=== PATIENT | male | born 1940 | race Caucasian/White ===

== ENCOUNTER 2018-06-21 15:42 | Observation (INO) | payer OTHER ==
[2018-06-21] MEDS ORDERED: LORazepam 2 MG/ML INJ IVP ONE (16:02)
[2018-06-21] MEDS ORDERED: NS 1,000 ML IV ONE (16:02)
[2018-06-21] MEDS ORDERED: ONDANSETRON 4 MG/2 ML VIAL IVP ONE (16:02)
--- NOTE | 2018-06-21 16:05 | EDPHY ---
H & P Stated Complaint: from [place] esophageal stricture Time Seen by Provider: 06/21/18 15:55 HPI/ROS: CHIEF COMPLAINT: Esophageal foreign body HISTORY OF PRESENT ILLNESS: Patient is a 77-year-old man with a history of esophageal stricture post two dilations. The most recent was 3 years ago. Last night he was eating steak for dinner and got a piece stuck. It is been present ever since. He presented to the emergency department at [place] at 4 :00 a.m. and received a dose of glucagon. Initially he felt like his symptoms resolved. However this seemed to return a few hours later so he went back to the emergency department in [place]. There he received another dose of glucagon. He has been unable to tolerate liquids. He still has a foreign body sensation. They called and spoke with Dr. Red Rodas from [facility] who requested that the patient be transferred to [facility] in for EGD. Severity: Moderate Modifying factors: None REVIEW OF SYSTEMS: Constitutional: denies: chills, fever, recent illness, recent injury EENTM: denies: blurred vision, double vision, nose congestion Respiratory: denies: cough, shortness of breath Cardiac: denies: chest pain, irregular heart rate, lightheadedness, palpitations Gastrointestinal/Abdominal: See HPI denies: abdominal pain, diarrhea, blood streaked stools Genitourinary: denies: dysuria, frequency, hematuria, pain Musculoskeletal: denies: joint pain, muscle pain Skin: denies: lesions, rash, jaundice, bruising Neurological: denies: headache, numbness, paresthesia, tingling, dizziness, weakness Hematologic/Lymphatic: denies: blood clots, easy bleeding, easy bruising Immunologic/allergic: denies: HIV/AIDS, transplant 10 systems reviewed and negative except as noted EXAM: GENERAL: Uncomfortable-appearing, well-nourished and in no acute distress. HEAD: Atraumatic, normocephalic. EYES: Pupils equal round and reactive to light, extraocular movements intact, sclera anicteric, conjunctiva are normal. ENT: TMs normal, nares patent, oropharynx clear without exudates. Moist mucous membranes. NECK: Normal range of motion, supple without lymphadenopathy or JVD. LUNGS: Breath sounds clear to auscultation bilaterally and equal. No wheezes rales or rhonchi. HEART: Regular rate and rhythm without murmurs, rubs or gallops. ABDOMEN: Soft, nontender, normoactive bowel sounds. No guarding, no rebound. No masses appreciated. BACK: No CVA tenderness, no spinal tenderness, step-offs or deformities EXTREMITIES: Normal range of motion, no pitting or edema. No clubbing or cyanosis. NEUROLOGICAL: Cranial nerves II through XII grossly intact. Normal speech, normal gait. 5/5 strength, normal movement in all extremities, normal sensation , normal reflexes PSYCH: Normal mood, normal affect. SKIN: Warm, dry, normal turgor, no visible rashes or lesions. Source: Patient Exam Limitations: No limitations - Personal History Current Tetanus/Diphtheria Vaccine: No Current Tetanus Diphtheria and Acellular Pertussis (TDAP): No Tetanus Vaccine Date: WITHIN 10 YRS - Medical/Surgical History Hx Asthma: No Hx Chronic Respiratory Disease: No Hx Diabetes: No Hx Cardiac Disease: No Hx Renal Disease: No Hx Cirrhosis: No Hx Alcoholism: No Hx HIV/AIDS: No Hx Splenectomy or Spleen Trauma: No Other PMH: Esophageal stricture, HTN, HIGH CHOLESTROL, gout, R knee replacement , Parkinsons - Family History Significant Family History: No pertinent family hx - Social History Smoking Status: Former smoker Alcohol Use: Sober Drug Use: None Constitutional: Initial Vital Signs Temperature (C) 36.9 C 06/21/18 15:50 Heart Rate 119 H 06/21/18 15:50 Respiratory Rate 24 H 06/21/18 15:50 Blood Pressure 126/106 H 06/21/18 15:50 O2 Sat (%) 93 06/21/18 15:50 O2 Delivery Mode Room Air Allergies/Adverse Reactions: No Known Allergies Allergy (Unverified 06/21/18 15:49) Home Medications: Medication Instructions Recorded Allopurinal 06/04/13 Simvastatin 06/04/13 Sleeping Pill 06/04/13 Lisinopril 07/19/14 Sinemet 10/100 MG (*) 06/21/18 Medical Decision Making - Diagnostics EKG Interpretation: An EKG obtained and was read and documented in trace view. Please see trace view for full reading and report. Sinus tachycardia, no acute ischemic changes T-wave inversion lead 3 similar to previous ED Course/Re-evaluation: 4:10 p.m. I discussed the case with Dr. Tobin who states that he will come to evaluated perform EGD. Differential Diagnosis: Partial list of the Differential diagnosis considered include but were not limited to; esophageal foreign body, erosion, stricture, varices and although unlikely based on the history and physical exam, I also considered peptic ulcer , cancer, aneurysm, dissection, pneumothorax, acute coronary disease. I discussed these differential diagnoses and the plan with the patient as well as the usual and expected course. The patient understands that the diagnosis is provisional and that in medicine we are not always correct and that further workup is often warranted. Usual and customary warnings were given. All of the patient's questions were answered. The patient was instructed to return to the emergency department should the symptoms at all worsen or return, otherwise to followup with the physician as we discussed. - Data Points Medications Given: Discontinued Medications Sodium Chloride (Ns) 1,000 mls @ 0 mls/hr IV EDNOW ONE; Wide Open PRN Reason: Protocol Stop: 06/21/18 16:03 Last Admin: 06/21/18 16:43 Dose: 1,000 mls Lorazepam (Ativan Injection) 1 mg IVP EDNOW ONE Stop: 06/21/18 16:03 Last Admin: 06/21/18 16:36 Dose: 1 mg Ondansetron HCl (Zofran) 4 mg IVP EDNOW ONE Stop: 06/21/18 16:03 Last Admin: 06/21/18 16:36 Dose: 4 mg Departure - Departure Disposition: To OP Cath/Surgery Clinical Impression: Esophageal foreign body Qualifiers: Encounter type: initial encounter Qualified Code(s): T18.108A - Unspecified foreign body in esophagus causing other injury, initial encounter Condition: Fair
[2018-06-21] MEDS ORDERED: LR 1,000 ML IV ONE (16:47)
--- NOTE | 2018-06-21 16:51 | CPEKG ---
Test Reason : OPEN Blood Pressure : / mmHG Vent. Rate : 105 BPM Atrial Rate : 105 BPM P-R Int : 154 ms QRS Dur : 085 ms QT Int : 345 ms P-R-T Axes : 034 012 -08 degrees QTc Int : 457 ms Sinus tachycardia Inferior infarct, age indeterminate Confirmed by Main Meza ([id number]) on 06/21/2018 4:50:56 PM Referred By: Confirmed By:Main Meza
--- NOTE | 2018-06-21 16:55 | PDGENHP ---
History & Physical Chief Complaint: Dysphagia History of Present Illness: Food impaction in the esophagus. Inability to eat or swallow. Not tolerating his own secretions. Previous history of similar with prior EGD and dilation of esophageal stenosis. Pertinent Past, Social, Family History: Parkinsons disease. GERD. Esophageal stricture. HTN Relevant Physical Exam: Uncomfortable. Spitting into bucket. Mild distress. Neck supple. CTA B/L. RRR without m/r/g. GI soft. NABS. NT/ND. Cardiorespiratory Assessment: ASA IIIE. EGD with foreign body removal
--- NOTE | 2018-06-21 16:57 | PDANEPAE ---
ANE History of Present Illness here for EGD ANE Past Medical History - Cardiovascular History Hx Hypertension: Yes Hx Arrhythmias: No Hx Chest Pain: No Hx Coronary Artery / Peripheral Vascular Disease: No Hx CHF / Valvular Disease: No Hx Palpitations: No - Pulmonary History Hx COPD: No Hx Asthma/Reactive Airway Disease: No Hx Recent Upper Respiratory Infection: No Hx Oxygen in Use at Home: No - Endocrine History Hx Diabetes: No Hypothyroid: No Hyperthyroid: No - Renal History Hx Renal Disorders: No - Liver History Hx Hepatic Disorders: No - Neurological & Psychiatric Hx Hx Neurological and Psychiatric Disorders: No ANE Review of Systems Review of systems is: negative Review of Systems: - Exercise capacity Exercise capacity: >=4 METS ANE Patient History - Allergies Allergies/Adverse Reactions: No Known Allergies Allergy (Unverified 06/21/18 15:49) - Home Medications Home medications: home medication list seen and reviewed Home Medications: Allopurinal 06/04/13 [Last Taken Unknown] Simvastatin 06/04/13 [Last Taken Unknown] Sleeping Pill 06/04/13 [Last Taken Unknown] Lisinopril 07/19/14 [Last Taken Unknown] Sinemet 10/100 MG (*) 06/21/18 [Last Taken Unknown] - NPO status NPO Status: no food or drink >8 hours - Smoking Hx Smoking Status: Former smoker - Alcohol Use Alcohol Use: Sober ANE Labs/Vital Signs - Vital Signs Vital Signs: reviewed preoperatively; see RN documention for details Blood Pressure: 154/107 Heart Rate: 105 Respiratory Rate: 15 O2 Sat (%): 94 Height: 175.26 cm Weight: 90.718 kg ANE Physical Exam - Airway Neck exam: FROM Mallampati Score: Class 1 Mouth exam: normal dental/mouth exam - Pulmonary Pulmonary: no respiratory distress - Cardiovascular Cardiovascular: regular rate and rhythym - ASA Status ASA Status: II ANE Anesthesia Plan Anesthesia Plan: general endotracheal anesthesia
[2018-06-21] MEDS ORDERED: PROPOFOL/EMULSION 500 MG/50 ML BOTTLE IV ONE (17:03)
[2018-06-21] MEDS ORDERED: ONDANSETRON 4 MG/2 ML VIAL IVP PRN ×2 (17:24→20:54)
[2018-06-21] MEDS ORDERED: NALOXONE HCL 0.4 MG/ML INJ IVP PRN (17:24)
[2018-06-21] MEDS ORDERED: ALBUTEROL 3 ML DEYVIAL IH PRN (17:24)
[2018-06-21] MEDS ORDERED: NS 500 ML IV PRN (17:24)
[2018-06-21] MEDS ORDERED: fentaNYL 100 MCG/2 ML INJ IVP PRN (17:24)
--- NOTE | 2018-06-21 17:56 | POSTANESTH ---
Post Anesthetic Evaluation Cardiovascular Status: Normal, Stable Respiratory Status: Normal, Stable Level of Consciousness/Mental Status: Mildly Sleepy, Arousable Pain Control: Adequate, Prn Tx Ordered Nausea/Vomiting Control: Adequate, Prn Tx Ordered
[2018-06-21] MEDS ORDERED: ACETAMINOPHEN 325 MG TAB PO PRN (20:54)
[2018-06-21] MEDS ORDERED: ONDANSETRON DISINTEGRATING 4 MG TAB PO PRN (20:54)
--- NOTE | 2018-06-21 21:02 | PDGENHP ---
History and Physical - Chief Complaint not waking up after procedure - History of Present Illness 77yo M with progressive supranuclear palsy/Parkinsonism, dysphagia, esophageal strictures presented to our facility from [place] for EGD. Unable to obtain history from patient due to mental status so information was obtained from who is at bedside. He ate bison steak dinner last night and developed symptoms consistent with prior episodes of dysphagia. He was transported down to [facility] and Dr Tobin performed an EGD at 5pm where he removed food that was stuck in is esophagus and also performed an esophageal dilation. General anesthesia with propofol was used. In the PACU, the patient was not waking up in the usual timely fashion. He was also noted to be mildly hypoxic with oxygen saturations maintaining >90% on 1-2L via NC. Per patient's , he has not had difficulty with anesthesia in the past. He was recently tapered off olanzapine. On my evaluation of the patient, he is somnolent but arouses to verbal stimuli but only for a few seconds at a time. He does not have any focal neurologic deficits although exam is a bit limited. It is felt that admission for observation is the safest plan for patient. Discussed with GI physician Dr Tobin. History Information - Allergies/Home Medication List Allergies/Adverse Reactions: No Known Allergies Allergy (Unverified 06/21/18 15:49) Home Medications: Allopurinal 06/04/13 [Last Taken Unknown] Simvastatin 06/04/13 [Last Taken Unknown] Sleeping Pill 06/04/13 [Last Taken Unknown] Lisinopril 07/19/14 [Last Taken Unknown] Sinemet 10/100 MG (*) 06/21/18 [Last Taken Unknown] I have personally reviewed and updated: family history, medical history, social history, surgical history - Past Medical History Additional medical history: progressive supranuclear palsy (PSP)/Parkinon's manifested as mild cognitive impairment/gait instability with falls/ impulsiveness/tremor, esophageal strictures, dysphagia, anxiety, gout, hypertension - Surgical History Additional surgical history: multiple esophageal dilations, left total knee arthroplasty - Family History Positive for: non-pertinent - Social History Smoking Status: Former smoker Alcohol Use: None Drug Use: None Additional social history: lives with in [place] Review of Systems Review of Systems: Unable to obtain due to patient's mental status. Physical Exam Physical Exam: Temp Pulse Resp BP Pulse Ox 36.7 C 102 H 27 H 123/80 H 95 06/21/18 17:43 06/21/18 18:17 06/21/18 20:31 06/21/18 20:31 06/21/18 20:01 Constitutional: no apparent distress, appears nourished, not in pain Eyes: PERRL, anicteric sclera, EOMI Ears, Nose, Mouth, Throat: moist mucous membranes, hearing normal, ears appear normal, no oral mucosal ulcers Cardiovascular: regular rate and rhythym, no murmur, rub, or gallop, No edema Respiratory: other (clear anterolaterally), No expiratory wheeze, No rhonchi Gastrointestinal: normoactive bowel sounds, soft, non-tender abdomen, distension , No tenderness Genitourinary: no bladder fullness, no bladder tenderness Skin: warm, normal color, no rashes or abrasions, no fluctuance, no induration, No mottled Neurologic: other (arousable to verbal stimuli, move all extremities, CN 2-12 appear intact) Assessment & Plan Assessment: 77yo M with progressive supranuclear palsy/Parkinsonism, dysphagia, esophageal strictures presented to our facility from [place] for EGD due to food stuck in esophagus. He has been excessively somnolent after anesthesia and is felt to be unsafe to discharge to home. Also is mildly hypoxemic. Plan: #Acute encephalopathy: Slowly waking up. No focal neuro deficits. Most consistent with prolonged effects of anesthesia in setting of underlying neurologic disorder. Low concern for alternative acute process such as infection , CVA, serotonin syndrome. - Monitor, avoid centrally acting meds - If not improving overnight, will consider evaluation with basic labs, ABG, CT head #Acute hypoxemic respiratory insufficiency: Atelectasis. - IS once awake, wean supplemental O2 #PSP/Parkinson's: Followed by neurologist at [facility]. Awaiting med reconciliation. #Esophageal strictures/dysphagia: S/p EGD by Dr Tobin with removal of food and dilation. #HTN: BP ok. Restart home meds once reconciled. #BPH: Restart home meds once reconciled. #Gout: No e/o acute flare. Restart home meds once reconciled. Diet: regular once awake VTE ppx: SCDs Code: Full Dispo: Admit under observation as unsafe for discharge to home with current mental status changes.
[2018-06-22 11:01] VITALS: BP 115/78
--- NOTE | 2018-06-22 11:08 | GIREPORT ---
[facility] Surgical Services - Endoscopy Department Patient Name: Cristian Orozco Procedure Date: 06/21/2018 4:35 PM Patient Type: Outpatient Attending MD/ ER Physician: Boaz Tobin MD Procedure: Upper GI endoscopy Indications: Dysphagia, Foreign body in the esophagus Providers: Boaz Tobin MD Medicines: General Anesthesia Complications: No immediate complications. Description of Procedure: After obtaining informed consent, the endoscope was passed under direct vision. Throughout the procedure, the patient's blood pressure, pulse, and oxygen saturations were monitored continuously. The Endoscope was intro duced through the mouth, and advanced to the second part of duodenum. The [facility] GI endoscopy was accomplished without difficulty. The patient tolerated th e procedure well. Findings: Food was found in the lower third of the esophagus. Removal of food was accomplished. The esophagus was tortuous, likely due to the hiatal hernia. There was also evidence of some dysmotility, likely related to his parkinsons disease. One benign-appearing, intrinsic stenosis was found 35 cm from the incis ors. This stenosis was moderately severe and measured 1 cm (inner diameter) x 1 cm (in length). The stenosis was traversed. A TTS dilator was passed th rough the scope. Dilation with a 12-13.5-15 mm x 8 cm CRE balloon dilator was performed to 15 mm. A medium-sized hiatal hernia was present. The stomach was normal. The examined duodenum was normal. Estimated Blood Loss: Estimated blood loss: none. Post Op Diagnosis: - Food in the lower third of the esophagus. Removal was successful. - Tortuous distal esophagus. - Mild esophageal dysmotility. - Benign-appearing moderate esophageal stenosis. Dilated to 15mm with a TTS balloon. - Medium-sized hiatal hernia. - Normal stomach. - Normal examined duodenum. Recommendation: - Soft diet. - Use Nexium (esomeprazole) 40 mg PO daily. - Repeat upper endoscopy in 4 weeks for retreatment. - Discharge patient to home (ambulatory). - Thank you for allowing me to be involved in the care of your patient. Attending Participation: I personally performed the entire procedure without the assistance of a fellow, resident or surg ical commissary assistant. Boaz Tobin MD Boaz Tobin MD 06/21/2018 5:39:00 PM This report has been signed electronicallyDavid MD Mahad Number of Addenda: 0 Note Initiated On: 06/21/2018 4:35 PM [email or web address]
--- NOTE | 2018-06-22 11:57 | HOSPPROG ---
Hospitalist Progress Note Assessment/Plan: 77yo M with progressive supranuclear palsy/Parkinsonism, dysphagia, esophageal strictures presented to our facility from [place] for EGD. Today is my first encounter w the patient, chart reviewed. #Acute encephalopathy -suspect this was from getting sedation for the procedure -he is awake and alert today #Acute hypoxemic respiratory insufficiency: -resolved #PSP/Parkinson's: Followed by neurologist at [facility]. -Sinemet resumed -extremely weak, will order home care PT, OT #Esophageal strictures/dysphagia: S/p EGD by Dr Tobin with removal of food and dilation. -f/u with Dr Tobin for a repeat EGD in 4 weeks #tachycardia -during my evaluation his pulse is 90 (his says he ranges from 90-100) -reviewed previous admission and was noted to be tachycardic at that time #HTN: BP ok. #BPH: -Flomax *Plan: dc home w f/u with Dr Tboin and with his PCP Subjective: Cristian has no complaints. Objective: Vital Signs Temp Pulse Resp BP Pulse Ox 37.2 C 114 H 16 115/78 91 L 06/22/18 10:59 06/22/18 10:59 06/22/18 10:59 06/22/18 10:59 06/22/18 10:59 06/21/18 06/22/18 06/23/18 05:59 05:59 05:59 Intake Total 1000 Balance 1000 - Physical Exam Constitutional: appears nourished, not in pain Eyes: other (keeps his eyes closed) Ears, Nose, Mouth, Throat: hearing normal Cardiovascular: regular rate and rhythym Respiratory: no respiratory distress, rhonchi (very loose sounding) Skin: warm Musculoskeletal: generalized weakness Psychiatric: interacting appropriately, not anxious, not encephalopathic ICD10 Worksheet Patient Problems: Problems Problem Status Onset Esophageal foreign body Acute
[2018-06-22] MEDS ORDERED: SENNOSIDES 1 TAB PO PRN (11:58)
[2018-06-22] MEDS: ALLOPURINOL 300 MG TAB PO SCH ×2 (12:25→12:39)
[2018-06-22] MEDS: VENLAFAXINE HCL 25 MG TAB PO SCH ×2 (12:26→12:39)
[2018-06-22] MEDS: DONEPEZIL HCL 5 MG TAB PO SCH ×2 (12:26→12:39)
[2018-06-22] MEDS ORDERED: PANTOPRAZOLE SODIUM 40 MG TAB PO SCH (12:30)
[2018-06-22] MEDS ORDERED: CARBIDOPA/LEVODOPA 25 MG/100 MG TAB PO SCH (12:45)
--- NOTE | 2018-06-22 13:45 | PDIAF ---
- Diagnosis Diagnosis: esophageal stricture, parkinsons, gait instability w frequent falls Code Status: Full Code - Medication Management Discharge Medications: Medications to Continue on Transfer Allopurinol [Allopurinol 300 MG (RX)] 300 mg PO DAILY 06/22/18 [Last Taken Unknown] Carbidopa/Levodopa [Carbidopa-Levodopa 25-100 Tab] 1 each PO DAILY 06/22/18 [ Last Taken Unknown] Cholecalciferol Vit D3 [Vitamin D3 (*)] 5,000 units PO DAILY 06/22/18 [Last Taken Unknown] Donepezil HCl [Aricept] 10 mg PO DAILY 06/22/18 [Last Taken Unknown] Esomeprazole Magnesium 40 mg PO DAILY 06/22/18 [Last Taken Unknown] Finasteride [Proscar 5 MG (*)] 5 mg PO DAILY 06/22/18 [Last Taken Unknown] Lisinopril [Zestril 40 mg (*)] 40 mg PO DAILY 06/22/18 [Last Taken Unknown] Melatonin [Melatonin 3 MG (*)] 3 mg PO HS 06/22/18 [Last Taken Unknown] OLANZapine [OLANZapine (*)] 5 mg PO HS 06/22/18 [Last Taken Unknown] Sennosides [Senna Lax] 8.6 mg PO HS PRN 06/22/18 [Last Taken Unknown] Tamsulosin HCl [Flomax 0.4 MG (*)] 0.4 mg PO HS 06/22/18 [Last Taken Unknown] Venlafaxine HCl 50 mg PO DAILY 06/22/18 [Last Taken Unknown] Venlafaxine HCl [Venlafaxine 25MG (*)] 25 mg PO HS 06/22/18 [Last Taken Unknown] Discharge Medications: Refer to the Discharge Home Medication list for PRN reason. [facility] Care - Routine: N/A - Orders Services needed: Home Care, Physical Therapy, Occupational Therapy Home Care Face to Face: I certify that this patient was under my care and that I had the required [id number] encounter meeting the encounter requirements on the discharge day. My findings support the fact that the patient is homebound as defined in Home Care Face to Face Continued: CMS Chapter 7 Medicare Benefits Manual 30.1.1 , The condition of the patient is such that there exists a normal inability to leave home and consequently, leaving home would require a considerable and taxing effort. Diet Recommendation: no restrictions on diet, other (would avoid meat, chicken, large pieces of food. Drink warm fluids prior to eating) Diet Texture: Regular Texture Diet, Thin Liquids, Meds Whole w/Liquids Additional Instructions: follow up with Dr Tobin in 4 weeks for another EGD continue Nexium daily if Cristian develops fever or chills; return to the ER - Follow Up Care Current Providers and Referrals: Boaz Tobin MD [Medical Doctor] - As per Instructions NONE *PRIMARY CARE P,. [Primary Care Provider] - As per Instructions
--- NOTE | 2018-06-22 13:56 | SOAPPROG ---
SOAP Progress Note Assessment/Plan: Assessment: 1. Dysphagia 2. Esophageal dysmotility 3. Parkinsons disease 4. Esophageal stricture 5. Delirium-prolonged anesthesia recovery Plan: 1. Soft mechanical diet 2. Outpatient GI f/u (our office will arrange) 3. Ok to discharge from my perspective 06/22/18 13:52 Subjective: CC: Swallowing well. No N/V. Alert and back to normal mental status baseline. Objective: Vital Signs Temp Pulse Resp BP Pulse Ox 37.2 C 114 H 16 115/78 91 L 06/22/18 10:59 06/22/18 10:59 06/22/18 10:59 06/22/18 10:59 06/22/18 10:59 06/21/18 06/22/18 06/23/18 05:59 05:59 05:59 Intake Total 1000 Balance 1000 Physical Exam - Physical Exam General Appearance: no apparent distress EENT: pharynx normal Neck: supple Respiratory: lungs clear Cardiac/Chest: regular rate, rhythm Abdomen: non-tender, soft, No guarding, No rebound Skin: normal color, warm/dry Neuro/Psych: alert, oriented x 3 ICD10 Worksheet Patient Problems: Problems Problem Status Onset Esophageal foreign body Acute
--- NOTE | 2018-06-22 14:17 | ASMTCMCOM ---
CM Note CM Note Notes: Spoke with pt and in the room as well as RN. Pt and live independently in [place] and receive services through the DC which provides unskilled caregiver 5 days a week. Home is outfitted with grab bars and wheelchair. Pt and feel current level of care is adequate at this time but pt would benefit from HC PT/OT if he qualifies. Referral sent to [facility] which requested. D/C Plan: Home with homecare PT/Ot and caregiver through the DC Date Signed: 06/22/2018 02:16 PM Electronically Signed By:Trupti Coates
--- NOTE | 2018-06-22 14:17 | ASMTLACE ---
LACE Length of stay for Answers: Less than 1 day current admission Acuity / Level of Answers: No Care: Did the patient have an inpatient admission? Comorbidities - select Answers: Other Notes: HTN, Parkinsons, gout all that apply # of Emergency department Answers: 1-2 visits in the last 6 months Score: 2 Date Signed: 06/22/2018 02:17 PM Electronically Signed By:Trupti Coates
--- NOTE | 2018-06-22 14:20 | ASMTDCNOTE ---
Case Management Discharge Discharge Order Complete? Answers: Yes Patient to Obtain Answers: via Family Medications Transportation Arranged Answers: Family/Friends Agency/Facility Transfer Answers: Yes Report Printed & Faxed to Receiving Agency Family Notified Answers: Yes Notes: in the room Discharge Comments Notes: Pt to discharge home with HHC PT/OT provided by [facility] which requested. [facility]. No further CM needs noted at this time. Date Signed: 06/22/2018 02:19 PM Electronically Signed By:Trupti Coates
--- NOTE | 2018-06-22 14:29 | ASDISCHSUM ---
Discharge Information Plan Status:Home with Home Health Medically Cleared to Leave:06/22/2018 Discharge Date:06/22/2018 CM D/C Disposition:Home Health Service ADT D/C Disposition:Home Health Service Projected Discharge Date:06/22/2018 11:00 AM Transportation at D/C:Family Discharge Delay Reason: Follow-Up Date:06/22/2018 11:00 AM Discharge Slot: Final Diagnosis:esophageal impaction Placement Information Referral Type:*Home Health Care Services Referral ID:[id number] Provider Name:[facility] (formerly [facility]) Address 1:[address] [address] Address 2: City:[place] Selection Factors: State:[place] Patient Contact Information Contact Name:LEWIS Relationship: [address] [facility] Work Phone: City:[facility] Phone: State/Zip Code:[place] [address] Email: Financial Information Financial Class:Medicare Primary Plan Desc:MEDICARE OUTPATIENT Primary Plan Number:[id number] [facility] Plan Number:[id number] Assessment Information [facility] CM Progress Note CM Note CM Note Notes: Spoke with pt and in the room as well as RN. Pt and live independently in [place] and receive services through the NH which provides unskilled caregiver 5 days a week. Home is outfitted with grab bars and wheelchair. Pt and feel current level of care is adequate at this time but pt would benefit from HC PT/OT if he qualifies. [facility]. D/C Plan: Home with homecare PT/Ot and caregiver through the NH Date Signed: 06/22/2018 02:16 PM Electronically Signed By:Trupti Coates LACE LACE Length of stay for Answers: Less than 1 day current admission Acuity / Level of Answers: No Care: Did the patient have an inpatient admission? Comorbidities - select Answers: Other Notes: HTN, Parkinsons, gout all that apply # of Emergency department Answers: 1-2 visits in the last 6 months Score: 2 Date Signed: 06/22/2018 02:17 PM Electronically Signed By:Trupti Coates Case Management Discharge Plan Note Case Management Discharge Discharge Order Complete? Answers: Yes Patient to Obtain Answers: via Family Medications Transportation Arranged Answers: Family/Friends Agency/Facility Transfer Answers: Yes Report Printed & Faxed to Receiving Agency Family Notified Answers: Yes Notes: in the room Discharge Comments Notes: Pt to discharge home with [facility] Pt also current with the NH that provides daytime unskilled caregivers via [email or web address] Agency. No further CM needs noted at this time. Date Signed: 06/22/2018 02:19 PM Electronically Signed By:Trupti Coates Intervention Information
--- NOTE | 2018-06-22 15:43 | CPEKG ---
Test Reason : OPEN Blood Pressure : / mmHG Vent. Rate : 098 BPM Atrial Rate : 099 BPM P-R Int : 141 ms QRS Dur : 095 ms QT Int : 368 ms P-R-T Axes : 039 006 002 degrees QTc Int : 470 ms Sinus tachycardia Ventricular premature complex Abnormal R-wave progression, early transition Abnormal inferior Q waves Confirmed by Lloyd Bautista ([id number]) on 06/22/2018 3:42:59 PM Referred By: Confirmed By:Lloyd Bautista
--- NOTE | 2018-06-22 16:24 | GDS ---
DISCHARGE DIAGNOSES: 1. Acute encephalopathy. 2. Acute hypoxemic respiratory insufficiency. 3. Parkinson's with underlying progressive supranuclear palsy. 4. Esophageal strictures with dysphagia. 5. Tachycardia. 6. Hypertension. 7. Benign prostatic hypertrophy. CONSULTATION: Dr. Boaz Tobin. HISTORY: Briefly, the patient is a 77-year-old gentleman with progressive supranuclear palsy/jacob onism, dysphagia, esophageal strictures, who presented to [facility] from [facility] an EGD. Last night, he ate a bison steak for dinner and developed symptoms consistent with his avelina or episodes of dysphagia. He was transported to [facility], and Dr. Tobin performed an EGD, removed food th at was stuck in his esophagus and also performed esophageal dilation. He had general anesthesia, and he was not waking up in a timely fashion. He was admitted for further care. HOSPITAL COURSE: 1. Acute encephalopathy, resolved. 2. Acute hypoxemic respiratory insufficiency, resolved. 3. PSP/Parkinson's. He is followed by neurologist at [facility]. His Sinemet was resumed. He is ex tremely weak. Have ordered home care, PT and OT. 4. Esophageal strictures, as well as dysphagia. He is status post EGD with Dr. Tobin. He will foll ow up with Dr. Tobin in 4 weeks for a repeat EGD. 5. Tachycardia. His heart rate tends to run fast, per his . Reviewed an EKG, which showed sinu s tach. 6. Hypertension. Blood pressure is stable. 7. BPH. Resumed his home medications. DISCHARGE CONDITION: Stable. Blood pressure is 112/77, heart rate of 102, respiratory rate of 16. O2 sats on room air are 91%. Temperature is 37 degrees Celsius. DISCHARGE MEDICATIONS: Please see the EMR. DISCHARGE INSTRUCTIONS: 1. Further followup with Dr. Tobin in 4 weeks. 2. If he develops fever, chills, difficulty with swallowing, return to the ER. 3. Recommending that he is in a chair any time he is eating and to try drinking some warm fluids avelina or to eating and to avoid things that are difficult to swallow, including meat and chicken. /[id number]/MODL
[2018-06-22] MEDS ORDERED: VENLAFAXINE HCL 25 MG TAB PO SCH (21:00)
[2018-06-22] MEDS ORDERED: OLANZapine 5 MG TAB PO SCH (21:00)
[2018-06-22] MEDS ORDERED: TAMSULOSIN HCL 0.4 MG CAP PO SCH (21:00)
[2018-06-22] MEDS ORDERED: MELATONIN 3 MG TAB PO SCH (21:00)
[2018-06-23] MEDS ORDERED: FINASTERIDE 5 MG TAB PO SCH (09:00)
[2018-06-23] MEDS ORDERED: LISINOPRIL 40 MG TAB PO SCH (09:00)
[2018-06-23] MEDS ORDERED: CHOLECALCIFEROL VIT D3 1,000 UNITS TAB PO SCH (09:00)
== END 2018-06-22 15:35 | disposition home health service (06) ==
LOC: FSGY 16:33 → F3E 20:48
PROVIDERS: ADMIT Internal Medicine Gastroenterology; ATTEND Internal Medicine Gastroenterology
DX: T18.128A Food in esophagus causing other injury, initial encounter (principal); R06.89 Other abnormalities of breathing; G93.40 Encephalopathy, unspecified; G20 Parkinson's disease; K22.2 Esophageal obstruction; R13.12 Dysphagia, oropharyngeal phase; I10 Essential (primary) hypertension; N40.0 Benign prostatic hyperplasia without lower urinary tract symptoms; Z96.651 Presence of right artificial knee joint; E86.9 Volume depletion, unspecified
CPT/HCPCS: 43247; 43249; 92610; 93005; 97163; 97166; 97530; C1726; G0378; G8978; G8979; G8987; G8988; G8996; G8997; G8998; J2060; J2405; J2704; 96374